=== PATIENT | male | born 1990 | race Caucasian/White ===

== ENCOUNTER 2018-10-22 15:15 | Emergency (ER) | payer BC ==
[2018-10-22] MEDS ORDERED: Acetaminophen TAB* 325 MG PO ONE (16:22)
--- NOTE | 2018-10-22 16:24 | UC ---
FLU HPI - HPI Summary HPI Summary: 28 yo male presents with fatigue, body aches, fever, headache, and dry cough since yesterday. He tells me that many of his coworkers have been sick with the flu and he thinks he may have it. Has not been eating or drinking over the last 2 days as he has also been vomiting intermittently. Has not taken any OTC medications. Denies SOB, chest pain, abdominal pain, diarrhea. - History of Current Complaint Chief Complaint: UCGeneralIllness Stated Complaint: HEADACHE, VOMITING, AND COUGH Time Seen by Provider: 10/22/18 16:23 Hx Obtained From: Patient Onset/Duration: Sudden Onset Severity Currently: Severe Severity Initially: Severe Pain Intensity: 8 Pain Scale Used: 0-10 Numeric - Allergy/Home Medications Allergies/Adverse Reactions: Allergies Allergy/AdvReac Type Severity Reaction Status Date / Time Penicillins Allergy Rash Verified 10/22/18 16:22 Home Medications: Home Medications Ibuprofen TAB* [Motrin TAB* 400 MG] 400 mg PO Q6H PRN 10/22/18 [History Confirmed 10/22/18] PMH/Surg Hx/FS Hx/Imm Hx - Additional Past Medical History Additional PMH: None - Surgical History Surgical History: Yes Surgery Procedure, Year, and Place: INGUINAL HERNIA REPAIR - Family History Known Family History: Positive: Hypertension - paternal grandfather - Social History Occupation: Employed Full-time Lives: With Family Alcohol Use: None Substance Use Type: None Smoking Status (MU): Never Smoked Tobacco - Immunization History Most Recent Influenza Vaccination: Not the 2014/2015 Season Review of Systems All Other Systems Reviewed And Are Negative: Yes Constitutional: Positive: Fever, Fatigue, Other - Body aches Skin: Positive: Negative Eyes: Positive: Negative ENT: Positive: Negative Respiratory: Positive: Cough Cardiovascular: Positive: Negative Gastrointestinal: Positive: Vomiting Genitourinary: Positive: Negative Neurovascular: Positive: Negative Neurological: Positive: Negative Psychological: Positive: Negative Physical Exam - Summary Physical Exam Summary: GENERAL: Mildly ill appearing. Appears fatigued SKIN: No rashes, sores, lesions, or open wounds. HEENT: Head: AT/NC Eyes: EOM intact. Conjunctiva clear without inflammation or discharge. Ears: Hearing grossly normal. TMs intact, no bulging, erythema, or edema. Nose: Nasal mucosa pink and moist. NTTP maxillary and frontal sinus. Throat: Posterior oropharynx without exudates, erythema, or tonsillar enlargement. Uvula midline. NECK: Supple. Nontender. No lymphadenopathy. CHEST: CTAB. No r/r/w. No accessory muscle use. Breathing comfortably and in no distress. CV: RRR. Without m/r/g. Pulses intact. Cap refill <2seconds ABDOMEN: Soft. NTTP. No distention or guarding. Bowel sounds present NEURO: Alert. PSYCH: Age appropriate behavior. Triage Information Reviewed: Yes Vital Signs: Initial Vital Signs Temp 103.5 F 10/22/18 16:17 Pulse 118 10/22/18 16:17 Resp 18 10/22/18 16:17 BP 139/88 10/22/18 16:17 Pulse Ox 98 10/22/18 16:17 Laboratory Tests 10/22/18 10/22/18 16:34 16:37 Influenza A (Rapid) Positive A Group A Strep Rapid Negative Vital Signs Reviewed: Yes Re-Evaluation - Re-Evaluation First Eval Re-Evaluation Time: 18:11 Change: Improved Comment: S/p toradol, tylenol, and 1L NS. Feeling better. Headache much improved. Flu Course/Dx - Course Course Of Treatment: In the clinic pt was given tylenol, zofran, toradol, and 1L NS. His symptoms significantly improved and his fever reduced to 100.8F. He had no episodes of vomiting in the clinic and was able to drink water. Will dc with tamiflu and have him rest and drink plenty of fluids. - Differential Dx/Diagnosis Provider Diagnosis: Influenza Discharge - Sign-Out/Discharge Documenting (check all that apply): Patient Departure All imaging exams completed and their final reports reviewed: No Studies - Discharge Plan Condition: Stable Disposition: HOME Prescriptions: Oseltamivir CAP* [Tamiflu CAP*] 75 mg PO BID #10 cap Patient Education Materials: Influenza (ED) Forms: *Work Release Referrals: No Primary Care Phys,NOPCP [Primary Care Provider] - Additional Instructions: If you develop a fever, shortness of breath, chest pain, new or worsening symptoms - please call your PCP or go to the ED. Your blood pressure was high at todays visit. Please see your primary provider within 4 weeks for recheck and re-evaluation. - Billing Disposition and Condition Condition: STABLE Disposition: Home - Attestation Statements Provider Attestation: I was available for consult. This patient was seen by the [facility]. The patient was not presented to, seen by, or examined by me. -Floyd
[2018-10-22] MEDS ORDERED: Ondansetron ODT TAB* 4 MG SL ONE (16:31)
[2018-10-22 16:42] LABS: Influenza A Molecular POSITIVE (Negative)
[2018-10-22 17:17] VITALS: BP 132/76
[2018-10-22] MEDS ORDERED: NS 0.9% 1000 ML** 1,000 ML IV ONE (17:17)
[2018-10-22] MEDS ORDERED: Ketorolac INJ* 30 MG/ML 1 ML VIAL IV PUSH ONE (17:17)
== END 2018-10-22 18:20 | disposition home or self-care (01) ==
LOC: UCEAST 15:15
DX: J11.1 Influenza due to unidentified influenza virus with other respiratory manifestations (principal); Z88.0 Allergy status to penicillin
CPT/HCPCS: 87651; 96360; 96374; 99212; A9270-GY; G0463; J1885

== ENCOUNTER 2019-08-28 13:17 | Emergency (ER) | payer BC ==
[2019-08-28 13:30] VITALS: BP 124/75
--- NOTE | 2019-08-28 13:40 | UC ---
Back Pain HPI - HPI Summary HPI Summary: patient has had prior hx intermittent low back pain. current episode started 3 days ago, came on suddenly, no known precipitant, no fall or known injury. has been using ibuprofen 400mg 2-3 times a day and feeling no better, pain does not radiate, no loss bowel, bladder control, no weakness, no numbness - History of Current Complaint Chief Complaint: UCBackPain Stated Complaint: BACK PAIN Time Seen by Provider: 08/28/19 13:30 Hx Obtained From: Patient Onset/Duration: Sudden Onset Timing: Constant Severity Initially: Moderate Severity Currently: Severe Pain Intensity: 8 Back Pain: Is Discrete @ - bilateral L4-L5 area Character: Throbbing, Spasmodic, Stiffness Aggravating Factor(s): Movement, Bending Alleviating Factor(s): Position Associated Signs And Symptoms: Positive: Negative. Negative: Weakness, Numbness , Abdominal Pain, Flank Pain, Bladder Incontinence, Bowel Incontinence Related History: Similar Episode Dx As - back strain - Allergies/Home Medications Allergies/Adverse Reactions: Allergies Allergy/AdvReac Type Severity Reaction Status Date / Time Penicillins Allergy Rash Verified 08/28/19 13:23 PMH/Surg Hx/FS Hx/Imm Hx Previously Healthy: Yes - Surgical History Surgical History: Yes Surgery Procedure, Year, and Place: INGUINAL HERNIA REPAIR - Family History Known Family History: Positive: Hypertension - paternal grandfather - Social History Occupation: Employed Full-time Lives: With Family Alcohol Use: Rare Substance Use Type: None Smoking Status (MU): Never Smoked Tobacco - Immunization History Most Recent Influenza Vaccination: Not the Season Review of Systems All Other Systems Reviewed And Are Negative: Yes Constitutional: Positive: Negative. Negative: Fever, Chills Respiratory: Positive: Negative Cardiovascular: Positive: Negative Musculoskeletal: Negative: Decreased ROM Neurological: Positive: Negative Psychological: Positive: Negative Is Patient Immunocompromised?: No Physical Exam Triage Information Reviewed: Yes Appearance: Well-Appearing, No Pain Distress, Well-Nourished Vital Signs: Initial Vital Signs Temp 98.3 F 08/28/19 13:24 Pulse 95 08/28/19 13:24 Resp 16 08/28/19 13:24 BP 124/75 08/28/19 13:24 Pulse Ox 96 08/28/19 13:24 Vital Signs Reviewed: Yes Respiratory Exam: Normal Respiratory: Positive: Lungs clear Cardiovascular Exam: Normal Cardiovascular: Positive: RRR Musculoskeletal Exam: Normal Musculoskeletal: Positive: Strength Intact, ROM Intact, Other: - pain with low back flexion, neg bilateral SLR Neurological Exam: Normal Neurological: Positive: Alert Psychological Exam: Normal Skin Exam: Normal Skin: Negative: Rashes Back Pain Course/Dx - Differential Dx/Diagnosis Differential Diagnosis/HQI/PQRI: Cauda Equina Syndrome, Strain, Sprain Provider Diagnosis: Low back strain Discharge ED - Sign-Out/Discharge Documenting (check all that apply): Patient Departure All imaging exams completed and their final reports reviewed: No Studies - Discharge Plan Condition: Good Disposition: HOME Prescriptions: Cyclobenzaprine TAB* [Flexeril 10 MG TAB*] 10 mg PO TID PRN #15 tab PRN Reason: Spasms - Back Ibuprofen TAB* [Motrin TAB* 800 MG] 800 mg PO Q6H PRN #30 tab PRN Reason: Pain - Moderate Patient Education Materials: Low Back Strain (ED) Referrals: No Primary Care Phys,NOPCP [Primary Care Provider] - Marciano Ruth [Medical Doctor] - 1 Week (if no better) Additional Instructions: take ibuprofen and muscle relaxer as directed use warm packs to low back report to ER if symptoms worsen - Billing Disposition and Condition Condition: GOOD Disposition: Home - Attestation Statements Provider Attestation: I was available for consult. This patient was seen by the [facility]. The patient was not presented to, seen by, or examined by me. -Floyd
== END 2019-08-28 13:45 | disposition home or self-care (01) ==
LOC: UCEAST 13:17
DX: S39.012A Strain of muscle, fascia and tendon of lower back, initial encounter (principal); Z88.0 Allergy status to penicillin; X58.XXXA Exposure to other specified factors, initial encounter; Y92.9 Unspecified place or not applicable
CPT/HCPCS: 99212; G0463